=== PATIENT | female | born 1970 | race Caucasian/White ===

== ENCOUNTER 2020-06-20 08:52 | Outpatient (REF) | payer OTHER, SELFPAY ==
--- NOTE | 2020-06-20 08:57 | MM_ITS ---
EXAMINATION: MM DIAGNOSTIC DIGITAL BREAST TOMOSYNTHESIS, BILATERAL CLINICAL INFORMATION: Due for yearly exam. Also follow-up probable benign asymmetric density upper left breast MLO view noted on 05/15/2019. Benign ultrasound-guided biopsy left breast 05/29/2019 (benign breast tissue with marked stromal fibrosis; no atypia or carcinoma seen). However, biopsy clip marker resides inferior to the area of initial concern. The lifetime risk of breast cancer based on the Tyrer-Cuzick Model is 14%. COMPARISON: Mammography: 11/28/2019, 05/29/2019, 05/25/2019, 05/15/2019, 05/09/2018, 05/05/2018 TECHNIQUE: Digital breast tomosynthesis is performed in both the craniocaudal and mediolateral oblique views along with computer-aided detection (CAD). Synthesized 2D images are generated from the tomosynthesis. Additional left CC view is provided. FINDINGS: There are scattered areas of fibroglandular density (ACR BI-RADS breast composition Category b). Parenchymal pattern is similar to prior exams. There is no developing density or interval mass or architectural abnormality. The asymmetric density upper left breast on MLO view 05/15/2019 appears less conspicuous on current study. There is a biopsy clip marker again seen upper outer left breast and some stable punctate regional calcifications central and inner right breast. Results are provided to the patient at time of visit by the technologist. MM/MM tomosynthesis diagnostic BI IMPRESSION: 1. No significant changes from prior study. 2. The asymmetric density upper left breast noted in 2019 appears less conspicuous. No interval architectural abnormality. ASSESSMENT: BI-RADS 3: Probably Benign RECOMMENDATION: Diagnostic mammography at time of next annual exam, due in 12 months. This patient's information was entered into a reminder system with a target due date for their next mammogram.
== END 2020-06-20 08:53 | disposition home or self-care (01) ==
LOC: HO.MAMMO 08:52
PROVIDERS: Visit Provider Internal Medicine
DX: R92.8 Other abnormal and inconclusive findings on diagnostic imaging of breast (principal)
CPT/HCPCS: 77062; 77066

== ENCOUNTER 2020-06-25 10:54 | Outpatient (REF) | payer OTHER, SELFPAY ==
[2020-06-25 11:14] LABS: COVID-19 Test Negative (Negative); IDNOW Serial# 55D5AD1C
== END 2020-06-25 10:55 | disposition home or self-care (01) ==
LOC: HO.EMPCOV 10:54
PROVIDERS: Visit Provider Internal Medicine
DX: Z20.822 Contact with and (suspected) exposure to COVID-19 (principal)
CPT/HCPCS: 36415; 87635; C9803

== ENCOUNTER 2020-06-30 07:36 | Outpatient (REF) | payer OTHER, SELFPAY ==
[2020-06-30 07:55] LABS: COVID-19 Test Negative (Negative); IDNOW Serial# 55D5AD1C
== END 2020-06-30 07:37 | disposition home or self-care (01) ==
LOC: HO.EMPCOV 07:36
PROVIDERS: Visit Provider Internal Medicine
DX: Z20.822 Contact with and (suspected) exposure to COVID-19 (principal)
CPT/HCPCS: 36415; 87635; C9803

== ENCOUNTER 2020-08-15 09:56 | Outpatient (REF) | payer OTHER, SELFPAY ==
[2020-08-15 13:43] LABS: MANUAL DIFF FLAG NO
[2020-08-15 13:56] LABS: Basophils Absolute Auto 0.1 X10*3/uL (0.0-0.2); Basophils Percent Auto 0.9 % (0-2); Eosinophils Absolute Auto 0.2 X10*3/uL (0.0-0.4); Hematocrit 45.2 % (37-47); Hemoglobin 14.1 g/dl (12.0-16.0); Imm Gran Abs Auto 0.02 X10*3/uL (0.00-0.03); Imm Gran Pct Auto 0.4 % (0.0-0.4); Lymphocytes Absolute Auto 1.3 X10*3/uL (1.2-4.9); Lymphocytes Percent Auto 25.3 % (20-40); Mean Corpuscular HGB Conc 31.2 g/dl (31.0-35.0); Mean Corpuscular Hemoglobin 27.7 pg (27.0-33.0); Mean Corpuscular Volume 88.8 fL (80-98); Mean Platelet Volume 9.7 fL (9.4-12.3); Monocytes Absolute Auto 0.5 X10*3/uL (0.1-1.2); Monocytes Percent Auto 9.5 % (2-11); Neutrophils Absolute Auto 3.2 X10*3/uL (2.0-8.3); Neutrophils Percent Auto 60.9 % (45-73); Platelet Count 262 X10*3/uL (160-400); Red Blood Count 5.09 X10*6/uL (4.20-5.50); Red Cell Distribution Width 14.3 % (11.0-16.0); White Blood Count 5.3 X10*3/uL (4.8-10.8)
[2020-08-15 14:31] LABS: Alanine Aminotransferase 27 U/L (0-31); Alkaline Phosphatase 90 U/L (39-117); Anion Gap 15 (12-20); Aspartate Amino Transferase 23 U/L (5-31); Bilirubin Total 0.4 mg/dL (0.0-1.0); Blood Urea Nitrogen 14 mg/dL (9-16); Calcium 8.6 mg/dL (8.4-10.2); Carbon Dioxide 21 mmol/L (22-29); Chloride 107 mmol/L (96-108); Cholesterol 200 mg/dL; Estimated Glomerular Filt Rate > 60; Glucose Fasting 86 mg/dL (60-99); HDL Cholesterol 55 mg/dL; LDL Cholesterol Calculated 131 mg/dl; Potassium 4.4 mmol/L (3.3-5.1); Sodium 139 mmol/L (135-145); Triglycerides 73 mg/dL
[2020-08-15 15:07] LABS: TSH reflex Free T4 0.83 uIU/mL (0.32-4.0)
== END 2020-08-15 09:57 | disposition home or self-care (01) ==
LOC: HO.10HDL 09:56
PROVIDERS: Visit Provider Nurse Practitioner Family
DX: Z76.89 Persons encountering health services in other specified circumstances (principal)
CPT/HCPCS: 36415; 80053; 80061; 84443; 85025

== ENCOUNTER 2021-06-22 12:11 | Outpatient (REF) | payer OTHER, SELFPAY ==
--- NOTE | ~2021-06-22 | MM_ITS ---
EXAMINATION: MM DIAGNOSTIC DIGITAL BREAST TOMOSYNTHESIS, BILATERAL CLINICAL INFORMATION: Due for yearly. Also follow-up left breast probable benign asymmetric density upper on MLO view noted on 05/15/2019. Benign ultrasound-guided biopsy left breast 05/29/2019 (benign breast tissue with marked stromal fibrosis; no atypia or carcinoma seen). However, biopsy clip marker resides inferior to the area intended for recall. The lifetime risk of breast cancer based on the Tyrer-Cuzick Model is 15%. COMPARISON: Mammography: 06/20/2020, 11/28/2019, 05/29/2019, 05/15/2019 (BI-RADS 0); targeted left breast ultrasound 05/25/2019, ultrasound-guided core biopsy left breast 05/29/2019. TECHNIQUE: Digital breast tomosynthesis is performed in both the craniocaudal and mediolateral oblique views along with computer-aided detection (CAD). Synthesized 2D images are generated from the tomosynthesis. Additional right CC view is provided. FINDINGS: There are scattered areas of fibroglandular density (ACR BI-RADS breast composition Category b). Parenchymal pattern is similar to prior exams. There is no developing density or interval architectural abnormality. Biopsy clip marker again noted mid upper outer left breast. No developing density. There are scattered calcifications again noted in each breast. Type group of round calcifications mid upper outer right breast is stable from prior study. The axilla and skin contours are unremarkable. Results are provided to the patient at time of visit by the technologist. MM/MM tomosynthesis diagnostic BI IMPRESSION: No significant changes from prior studies. No developing density upper left breast. ASSESSMENT: BI-RADS 2: Benign RECOMMENDATION: Routine annual mammography screening. This patient's information was entered into a reminder system with a target due date for their next mammogram.
== END 2021-06-22 12:12 | disposition home or self-care (01) ==
LOC: HO.MAMMO 12:11
PROVIDERS: PCP Internal Medicine; Visit Provider Internal Medicine
DX: N64.89 Other specified disorders of breast (principal)
CPT/HCPCS: 77062; 77066

== ENCOUNTER 2021-11-25 07:35 | Outpatient (REF) | payer OTHER, SELFPAY ==
[2021-11-25 10:26] LABS: Hematocrit 45.8 % (37.0-47.0); Hemoglobin 14.7 g/dl (12.0-16.0); Mean Corpuscular HGB Conc 32.1 g/dl (31.0-35.0); Mean Corpuscular Hemoglobin 28.8 pg (27.0-33.0); Mean Corpuscular Volume 89.6 fL (80.0-98.0); Mean Platelet Volume 9.9 fL (9.4-12.3); Platelet Count 255 X10*3/uL (160-400); Red Blood Count 5.11 X10*6/uL (4.20-5.50); Red Cell Distribution Width 13.5 % (11.0-16.0); White Blood Count 4.5 X10*3/uL (4.8-10.8)
[2021-11-25 10:47] LABS: Anion Gap 10 (12-20); Blood Urea Nitrogen 12 mg/dL (9-16); Calcium 9.1 mg/dL (8.4-10.2); Carbon Dioxide 25 mmol/L (22-29); Chloride 107 mmol/L (96-108); Cholesterol 207 mg/dL; Estimated Glomerular Filt Rate > 60; Glucose Fasting 104 mg/dL (60-99); HDL Cholesterol 55 mg/dL; LDL Cholesterol Calculated 138 mg/dl; Potassium 4.3 mmol/L (3.3-5.1); Sodium 138 mmol/L (135-145); Triglycerides 70 mg/dL
[2021-11-25 11:10] LABS: Thyroid Stimulating Hormone 1.61 uIU/mL (0.32-4.0); Vitamin D 25-OH Total 35.3 ng/mL (>30)
== END 2021-11-25 07:36 | disposition home or self-care (01) ==
LOC: HO.10HDL 07:35
PROVIDERS: Visit Provider Internal Medicine
DX: Z00.00 Encounter for general adult medical examination without abnormal findings (principal)
CPT/HCPCS: 36415; 80048; 80061; 82306; 84443; 85027

== ENCOUNTER 2022-12-02 08:12 | Outpatient (REF) | payer OTHER, SELFPAY ==
--- NOTE | ~2022-12-02 | XR_ITS ---
EXAMINATION: XR ANKLE, LEFT CLINICAL INFORMATION: Left ankle sprain. COMPARISON: None available. TECHNIQUE: AP, lateral, and mortise views of the left ankle. An indicator arrow points to the lateral left ankle. FINDINGS: Mild soft tissue swelling is seen. The ankle joint and mortise are intact. There is no acute fracture or dislocation. The tarsal bones are normally aligned. Small plantar and retrocalcaneal spurs are noted. XR/XR ankle LT min 3V IMPRESSION: 1. Mild soft tissue swelling without acute underlying osseous abnormality. 2. Small degenerative calcaneal spurs.
== END 2022-12-02 08:13 | disposition home or self-care (01) ==
LOC: HO.XRAY 08:12
PROVIDERS: PCP Internal Medicine; Visit Provider Internal Medicine
DX: S93.402D Sprain of unspecified ligament of left ankle, subsequent encounter (principal)
CPT/HCPCS: 73610

== ENCOUNTER 2022-12-17 08:21 | Outpatient (REF) | payer OTHER, SELFPAY ==
--- NOTE | ~2022-12-17 | MM_ITS ---
EXAMINATION: MM SCREENING DIGITAL BREAST TOMOSYNTHESIS, BILATERAL CLINICAL INFORMATION: Screening. Asymptomatic. The lifetime risk of breast cancer based on the Tyrer-Cuzick Model is 14.5.%. COMPARISON: Mammography: This study is compared with prior exams dating back to 2019. TECHNIQUE: Digital breast tomosynthesis is performed in both the craniocaudal and mediolateral oblique views along with computer-aided detection (CAD). Synthesized 2D images are generated from the tomosynthesis. FINDINGS: There are scattered areas of fibroglandular density (ACR BI-RADS breast composition Category b). There are no significant masses, abnormal calcifications, or other abnormalities. There is a tissue marker present in the upper-outer quadrant of the left breast from prior benign percutaneous biopsy. MM/MM tomosynthesis screening BI IMPRESSION: No mammographic evidence of malignancy. ASSESSMENT: BI-RADS BI-RADS 2 - Benign Findings RECOMMENDATION: Routine annual mammography screening. 1 year F/U This examination should not preclude the clinical evaluation of a suspicious palpable abnormality. This patient's information was entered into a reminder system with a target due date for their next mammogram.
== END 2022-12-17 08:22 | disposition home or self-care (01) ==
LOC: HO.MAMMO 08:21
PROVIDERS: PCP Internal Medicine; Visit Provider Internal Medicine
DX: Z12.31 Encounter for screening mammogram for malignant neoplasm of breast (principal)
CPT/HCPCS: 77063; 77067

== ENCOUNTER → 2022-12-17 08:30 | Outpatient (BNV) | payer OTHER, SELFPAY | PROVIDERS: PCP Internal Medicine; Visit Provider Radiology Diagnostic Radiology | DX: Z12.31 Encounter for screening mammogram for malignant neoplasm of breast (principal) | CPT/HCPCS: 77063; 77067 ==

== ENCOUNTER 2023-12-20 09:13 | Outpatient (REF) | payer OTHER, SELFPAY | END 2023-12-20 09:14 | disposition home or self-care (01) | LOC: HO.MAMMO 09:13 | PROVIDERS: PCP Internal Medicine; Visit Provider Internal Medicine | DX: Z12.31 Encounter for screening mammogram for malignant neoplasm of breast (principal) | CPT/HCPCS: 77063; 77067 ==

== ENCOUNTER → 2023-12-20 09:15 | Outpatient (BNV) | payer OTHER, SELFPAY | PROVIDERS: PCP Internal Medicine; Visit Provider Radiology Diagnostic Radiology | DX: Z12.31 Encounter for screening mammogram for malignant neoplasm of breast (principal) | CPT/HCPCS: 77063; 77067 ==

== ENCOUNTER 2025-03-20 08:25 | Outpatient (REF) | payer OTHER, SELFPAY | END 2025-03-20 08:26 | disposition home or self-care (01) | LOC: HO.MAMMO 08:25 | PROVIDERS: PCP Internal Medicine; Visit Provider Internal Medicine | DX: Z12.31 Encounter for screening mammogram for malignant neoplasm of breast (principal) | CPT/HCPCS: 77063; 77067 ==

== ENCOUNTER → 2025-03-20 08:45 | Outpatient (BNV) | payer OTHER, SELFPAY | PROVIDERS: PCP Internal Medicine; Visit Provider Internal Medicine | DX: Z12.31 Encounter for screening mammogram for malignant neoplasm of breast (principal) | CPT/HCPCS: 77063; 77067 ==

== ENCOUNTER 2025-03-20 08:55 | Outpatient (REF) | payer OTHER, SELFPAY ==
[2025-03-20 10:22] LABS: MANUAL DIFF FLAG NO
[2025-03-20 10:41] LABS: Hematocrit 46.2 % (37.0-47.0); Hemoglobin 15.5 g/dl (12.0-16.0); Imm Gran Abs Auto 0.02 X10*3/uL (0.00-0.03); Imm Gran Pct Auto 0.4 % (0.0-0.4); Lymphocytes Absolute Auto 1.4 X10*3/uL (1.2-4.9); Mean Corpuscular HGB Conc 33.5 g/dl (31.0-35.0); Mean Corpuscular Hemoglobin 29.4 pg (27.0-33.0); Mean Corpuscular Volume 87.5 fL (80.0-98.0); NRBC Abs Auto 0.000 X10*3/uL (0.0-0.012); NRBC Pct Auto 0.0 /100WBC (0.0-0.2); Platelet Count 260 X10*3/uL (160-400); Red Blood Count 5.28 X10*6/uL (4.20-5.50); White Blood Count 5.7 X10*3/uL (4.8-10.8)
[2025-03-20 11:18] LABS: ~HepC Num1 0.08 S/CO (0.00-0.79); ~Hepatitis C Antibody Nonreactive (Nonreactive)
[2025-03-20 11:23] LABS: Alanine Aminotransferase 25 U/L (0-31); Albumin Level 4.2 g/dL (3.5-5.0); Alkaline Phosphatase 98 U/L (39-117); Anion Gap 12 (12-20); Aspartate Amino Transferase 23 U/L (5-31); Blood Urea Nitrogen 14 mg/dL (9-16); Calcium 9.2 mg/dL (8.4-10.2); Carbon Dioxide 25 mmol/L (22-29); Chloride 109 mmol/L (96-108); Cholesterol 241 mg/dL (<200); Estimated Glomerular Filt Rate > 60; HDL Cholesterol 49 mg/dL (>40); Potassium 4.2 mmol/L (3.3-5.1); Sodium 142 mmol/L (135-145); Total Protein 7.3 g/dL (6.5-8.0); Triglycerides 98 mg/dL (<150)
[2025-03-20 11:28] LABS: Thyroid Stimulating Hormone 1.39 uIU/mL (0.32-4.0)
== END 2025-03-20 08:56 | disposition home or self-care (01) ==
LOC: HO.10HDL 08:55
PROVIDERS: Visit Provider Internal Medicine
DX: Z00.00 Encounter for general adult medical examination without abnormal findings (principal); E66.01 Morbid (severe) obesity due to excess calories; Z13.29 Encounter for screening for other suspected endocrine disorder; Z13.21 Encounter for screening for nutritional disorder
CPT/HCPCS: 36415; 80053; 80061; 82306; 84443; 85025; 86803

== ENCOUNTER 2025-04-08 09:16 | Outpatient (REF) | payer OTHER, SELFPAY ==
--- NOTE | ~2025-04-08 | MM_ITS ---
EXAMINATION(S): 1. MM DIAGNOSTIC DIGITAL BREAST TOMOSYNTHESIS, RIGHT 2. Targeted ultrasound of the right breast CLINICAL INFORMATION: Callback from screening for right breast findings: -Focal asymmetry in the upper inner quadrant middle to posterior depth. -Asymmetry in the lateral breast middle to posterior depth on the CC view COMPARISON: Comparison made to multiple prior, most recent March 20, 2025, and most remote May 15, 2019. TECHNIQUE: Digital breast tomosynthesis is performed in full field ML 90 degrees along with computer-aided detection (CAD). Synthesized 2D images are generated from the tomosynthesis. Spot compression tomosynthesis were obtained. FINDINGS: BREAST COMPOSITION: There are scattered areas of fibroglandular density. RIGHT BREAST: -Focal asymmetry in the upper inner quadrant middle to posterior depth is pliable with spot compression. On today's images, the local parenchyma has similar appearance to multiple prior studies as far back as 2019. -Asymmetry in the lateral breast in the medial to posterior depth on the CC view is pliable with spot compression; on today's images, its appearance is similar to multiple prior studies as far back as 2019. Targeted ultrasound of the right breast was performed at the location of the focal asymmetry in the upper inner quadrant. The survey shows a 0.5 x 0.2 x 0.3 cm cluster of cysts or cyst with septations at 1 o'clock position 5 cm from the nipple and 0.4 x 0.4 x 0.4 cm complicated cyst with hypoechoic content or solid mass at 2 o'clock position at 6 cm from the nipple. No internal vascularity demonstrated with color Doppler evaluation in either lesions. MM/MM tomosynthesis added views R IMPRESSION: RIGHT BREAST: 0.5 cm cluster of cysts or septated cyst at 1 o'clock position 5 cm from the nipple and 0.4 cm complicated cyst or solid mass at 2 o'clock position 6 cm from the nipple. Probably benign. A 6-month follow-up mammogram/ultrasound is recommended. ASSESSMENT: BI-RADS: Category 3: Probably benign RECOMMENDATION: 6 Month F/U Results were provided to the patient at time of visit by the technologist. This patient's information was entered into a reminder system with a target due date for their next mammogram. Electronically signed by: Claudia Alexandra MD 04/08/2025 10:35 AM EDT RP
--- OUTSIDE RECORDS SUMMARY | 2025-04-08 10:12 | XMS_ITS | Clinical Summary ---
Author Organization [facility] Address [address] [place] [address] Care Team Providers Care [employer] Operator Name Role Phone Saturnino Mejia MD Primary Care Provider [phone] Allergies Active Allergy Reactions Criticality Noted Date Comments Morphine Other (See Comments) High 06/11/2021 Passed out Medications No known medications Active Problems Problem Noted Date Diagnosed Date Mild intermittent asthma 06/11/2021 Obesity (BMI 35.0-39.9 without comorbidity) 05/15 Immunizations Name Administration Dates Next Due Adacel (Tdap) 05/28/2022 Covid-19 (Pfizer) Dilution Required 05/26/2021,0 06/25/2020,06/03/2020 Influenza Quad (Fluarix/Fluz one/FluLaval) 0.5mL (SD-IIV4) 03/13/2022 Influenza Quad (High Dose Fl uzone) 0.7mL >65Yrs (HD-IIV4) 04/13/2021 Pneumococcal Polysaccharide PPSV23 11/11/2011, Tdap 02/10/2011 Family History Medical History Relation Name Comments Diabetes Father Heart disease Father Hyperlipidemia Father Hypertension Father Breast cancer Maternal Grandmother Diabetes Mother Relation Name Status Comments Father Maternal Grandmother Mother Social History Tobacco Use Types Packs/Day Years Used Date Smoking Tobacco: Never Smokeless Tobacco: Never Tobacco Cessation:Counseling Given: Not Answered Alcohol Use Standard Drinks/Week Comments Yes 0 (1 standard drink = 0.6 oz pur e alcohol) Social Sex and Gender Information Value Date Recorded Sex Assigned at Not on file Gender Identity Not on file Sexual Orientation Not on file Job Start Date Occupation Industry Not on file Not on file Not on file Last Filed Vital Signs Vital Sign Reading Time Taken Comments Blood Pressure 127/78 05/28/2022 8:06 AM EST Pulse 88 05/28/2022 8:06 AM EST Temperature 36.3 C (97.3 F) 05/28/2022 8:06 AM EST Respiratory Rate 18 05/28/2022 8:06 AM EST Oxygen Saturation 99% 05/28/2022 8:06 AM EST Inhaled Oxygen Concentration - - Weight 114.6 kg (252 lb 9.6 oz) 05/28/2022 8:06 AM EST Height 165.1 cm (5' 5 ) 05/28/2022 8:06 AM EST Body Mass Index 42.03 05/28/2022 8:06 AM EST Plan of Treatment Health Maintenance Due Date Last Done Comments Hepatitis B Vaccines (1 of 3 - 3-dose series) 1970 Hepatitis C Screening 1970 Shingrix-Zoster Vaccine (1 of 2) 2020 Depression Screening 06/11/2022 06/11/2021 Preventative Health Evaluation 06/11/2022 06/11/2021, 06/11/2021 Breast Cancer Screening (Mammogram) 06/19/2022 06/19/2020 BMI Counseling 05/28/2023 05/28/2022, 11/12, 06/11/2021, Additional history exists COVID-19 Vaccine ( season) 2025 05/26/2021, 06/25/2020, 06/03/2020 Influenza Vaccine (#1) 2025 03/13/2022, 2020 Cervical Cancer Screening (Pap Smear) 05/28/2025 05/28/2022 Colon Cancer Screening (Colonoscopy) 06/04/2030 06/04/2020 DTap / Tdap / Td (3 - Td or Tdap) 05/28/2032 05/28/2022, 02/10/2011 Pneumococcal Vaccine Aged Out 11/11/2011, 04/13/20 06 No longer eligible based on patient's age to complete this topic RSV Ped < 20 months Aged Out No longe r eligible based on patient's age to complete this topic 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
--- OUTSIDE RECORDS SUMMARY | 2025-04-08 10:12 | XMS_ITS ---
Author Name [facility] Organization Unknown History of Medication Use Medication Directions Dispensed Refills Start Date End Date Stat us Paxlovid 300 mg (150 mg x 2)-100 mg tablets in a dose pack Take 3 tablets by oral route. 03/13/2024 01/28/2025 active albuterol sulfate HFA 90 mcg/actuation aerosol inhaler Inhale 2 puffs into the lungs every 6 (six) hours as needed for wheezing. 01/26/2024 active Wegovy 0.25 mg/0.5 mL subcutaneous pen injector Inject 0.25 mg every week by subcutaneous route. 09/08/2023 01/26/2024 completed Flovent HFA 110 mcg/actuation aerosol inhaler Inhale 2 puffs into the lungs 2 (two) times a day as needed. 08/25/2020 08/21/2021 completed oxycodone 5 mg tablet 01/26/2024 completed Paxlovid 300 mg (150 mg x 2)-100 mg tablets in a dose pack active Zepbound 10 mg/0.5 mL subcutaneous pen injector Inject 10 mg every week by subcutaneous route. active Allergies Allergen Reaction Severity Comment Documented Date Source Statu s MORPHINE [facility] Problems Problem Status Onset Date Problem Type Date of Resoluti on Source Hypercholesterolemia active 2022-12-06 [facility] [facility] Morbid obesity active 2024-01-26 ProblemAct [facility] Mild intermittent asthma active 2021-06-11 ProblemAct [facility] Immunizations Vaccine Date Source Lot Number Status influenza, seasonal, injecta ble, preservative free 01/25/2024 [facility] completed influenza, seasonal, injecta ble, preservative free 05/02/2023 [facility] completed tetanus toxoid, reduced diph theria toxoid, and acellular pertussis vaccine, adsorbed 05/28/2022 [facility] [id number] A completed Influenza, injectable, quadr ivalent, preservative free 03/13/2022 [facility] completed SARS-COV-2 (COVID-19) vaccin e, mRNA, spike protein, LNP, preservative free, 30 mcg/0.3mL dose 05/26/2021 [facility] completed influenza, high-dose seasona l, quadrivalent, preservative free 04/13/2021 [facility] completed SARS-COV-2 (COVID-19) vaccin e, mRNA, spike protein, LNP, preservative free, 30 mcg/0.3mL dose 06/25/2020 [facility] completed SARS-COV-2 (COVID-19) vaccin e, mRNA, spike protein, LNP, preservative free, 30 mcg/0.3mL dose 06/03/2020 [facility] completed pneumococcal polysaccharide vaccine, 23 valent 11/11/2011 [facility] [id number] completed tetanus toxoid, reduced diph theria toxoid, and acellular pertussis vaccine, adsorbed 02/10/2011 [facility] [id number] completed pneumococcal polysaccharide vaccine, 23 valent 04/13/2006 [facility] UNK completed Encounters Encounter Type Encounter Reason Primary Diagnosis Location Date Ambulatory [facility] 01/24/2025 [facility] 01/24/2025 [facility] 01/24/2025 [facility] 11/22/2023 Care Team Organization Name Specialty Phone Email Start Date End [facility] 01/26/2024 [facility] 12/14/2022 024
== END 2025-04-08 09:17 | disposition home or self-care (01) ==
LOC: HO.MAMMO 09:16
PROVIDERS: PCP Internal Medicine; Visit Provider Internal Medicine
DX: N64.89 Other specified disorders of breast (principal)
CPT/HCPCS: 76642; 77061; 77065

== ENCOUNTER → 2025-04-08 09:30 | Outpatient (BNV) | payer OTHER, SELFPAY | PROVIDERS: PCP Internal Medicine; Visit Provider Radiology Body Imaging | DX: R92.8 Other abnormal and inconclusive findings on diagnostic imaging of breast (principal) | CPT/HCPCS: 77061; 77065 ==